=== PATIENT | male | born 1985 | race Caucasian/White ===

== ENCOUNTER 2021-03-19 12:54 | Emergency (ER) | payer SELFPAY ==
[2021-03-20 00:41] LABS: SARS-CoV-2 PCR by NAA Not Detected (NotDetected)
== END 2021-03-19 13:17 | disposition home or self-care (01) ==
LOC: NAV ERS 12:54
DX: R51.9 Headache, unspecified (principal); R63.8 Other symptoms and signs concerning food and fluid intake; R53.83 Other fatigue; Z71.6 Tobacco abuse counseling; Z20.822 Contact with and (suspected) exposure to COVID-19
CPT/HCPCS: 99284; U0003; U0005